=== PATIENT | male | born 1980 | race Caucasian/White ===

== ENCOUNTER 2023-04-12 20:34 | Emergency (ER) | payer SELFPAY ==
[~2023-04-12] VITALS: Ht 182.9 cm; Wt 79.5 kg
[2023-04-12 20:41] VITALS: TEMP 97.8
[2023-04-12] MEDS ORDERED: Acetaminophen 500 MG TAB PO ONE (21:15)
[2023-04-12] MEDS ORDERED: Cyclobenzaprine 10 MG TAB PO ONE (21:15)
[2023-04-12 21:36] VITALS: BP 120/82
[2023-04-12] MEDS ORDERED: FLEXERIL 1010 MG/TAB PO (21:56)
[2023-04-12 22:40] VITALS: PULSE 64
== END 2023-04-12 22:41 | disposition home or self-care (01) ==
LOC: COL.ER 20:34
DX: M62.838 Other muscle spasm (principal)